=== PATIENT | male | born 1995 | race Caucasian/White ===

== ENCOUNTER 2019-03-14 21:39 | Emergency (ER) | payer OTHER, SELFPAY ==
[2019-03-14 21:40] VITALS: BP 142/74; PULSE 82; RESP 18; TEMP 37.1; O2SAT 99; BMI 29.8
--- NOTE | 2019-03-14 21:49 | ED.LOWEXIN ---
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 Patient states that prior to arrival he was in a crouched position cleaning out a pet cage when he twisted. He stated he had a sudden onset of pain and felt a pop on the inside aspect of his knee. He has been ambulatory since then but is having pain. He also states that he is having painful popping. Review of Systems Constitutional Denies fever(s) Musculoskeletal Comments: Left knee pain Integumentary/Breasts Denies rash Neurologic Comments: No changes sensation left lower extremity Hematologic/Lymphatic Denies easy bleeding and Denies easy bruising [facility] Medical History Patient denies medical problems (Acute) Social History Smoking Status: Never smoker Social History Smoking Status: Never smoker Exam Initial Vital Signs Initial Vital Signs: Vital Signs Temperature 98.7 F 03/14/19 21:40 Pulse Rate 82 03/14/19 21:40 Respiratory Rate 18 03/14/19 21:40 Blood Pressure 142/74 H 03/14/19 21:40 Pulse Oximetry 99 03/14/19 21:40 Cardio Pulses: dorsalis pedis present on the left Skin Lesions: no lesions Rashes: no rashes Neuro Cognition: normal cognition Speech: speech normal Sensory Exam: no sensory deficits noted Extrem Other: Patient with tenderness to palpation along the medial aspect of the left knee. ACL MCL PCL and LCL are all intact with functional testing. Hamstrings without discomfort. No tenderness palpation over the quadriceps or patellar tendon. Able to do straight leg raise without problems. Psych Appearance: grossly normal and well kempt Course Vital Signs - 8 hr 03/14/19 21:40 Temperature 98.7 F Pulse Rate 82 Respiratory Rate 18 Blood Pressure 142/74 H Pulse Oximetry 99 MDM - Extremity Injury (Lower) MDM Narrative Medical decision making narrative: Patient is able to ambulate. Low suspicion for fractures. Will hold on x-rays. I do suspect he disrupted his medial meniscus. We did discuss elevation and icing and anti-inflammatories. He does have a knee brace at home. He is going to contact with his medical department to discuss the indications for an MRI. He was given return precautions. He expressed understanding and agreement plan. Discharge Plan Departure Patient Disposition: Home Clinical Impression: Acute knee pain Qualifiers: Laterality: left Qualified Code(s): M25.562 - Pain in left knee Instructions: DI for Meniscal Tear, DI for Knee Pain Activity Restrictions/Additional Instructions: I have a strong suspicion that you have disrupted the medial meniscus of your left knee. Recommend that you ice your knee. Use the knee brace like we discussed. Contact your medical department to discuss the indications for an MRI. Return to the emergency department for any new or worsening symptoms Stand Alone Forms: Work Release Note
== END 2019-03-14 22:17 | disposition home or self-care (01) ==
PROVIDERS: Emergency Provider Emergency Medicine
DX: M25.562 Pain in left knee (principal)
CPT/HCPCS: 99282